=== PATIENT | male | born 2000 | race Two or more races ===

== ENCOUNTER → 2024-11-12 | Outpatient (CLI) | payer MEDICARE, MEDICAID, SELFPAY ==
--- NOTE | 2024-11-12 | XR_ITS ---
Examination: Abdomen AP single view Technique: AP portable supine abdomen, single view Exam date and time: November 12, 2024 1201 hours INDICATIONS: Status post left ureteral stent placement FINDINGS: Left ureteral stent satisfactory position Moderate air and stool in the colon overlies the kidneys IMPRESSION: Left ureteral stent satisfactory position
== END | disposition home or self-care (01) ==
LOC: CDIM 11:25
PROVIDERS: Referring Provider Surgery; Visit Provider Surgery
DX: N20.1 Calculus of ureter (principal); Z98.890 Other specified postprocedural states
CPT/HCPCS: 74018

== ENCOUNTER → 2024-11-20 | Outpatient (CLI) | payer MEDICARE, MEDICAID, SELFPAY ==
[2024-11-20 10:27] VITALS: BMI 16.2
--- NOTE | 2024-11-20 10:51 | SUR.PREOP ---
Pt is non verbal, delayed. unable to walk, see health history.
[2024-11-20 12:53] LABS: Basophils % (Auto) 0 % (0-2.5); Eosinophils # (Auto) 0.1 Thou/mm3 (0.0-0.5); Eosinophils % (Auto) 1 % (0-10); Hematocrit 40.1 % (41.0-53.0); Hemoglobin 12.9 g/dL (13.5-16.0); Immature Granulocytes % (Auto) 1 % (0-0); Immature Granulocytes Auto 0.08 Thou/mm3 (0.00-0.00); Lymphocytes # (Auto) 1.8 Thou/mm3 (1.0-4.8); Lymphocytes % (Auto) 11 % (10-50); Mean Corpuscular HGB Conc 32.2 g/dl (31.0-37.0); Mean Corpuscular Hemoglobin 32.3 pg (25.0-35.0); Mean Corpuscular Volume 100 fL (80-100); Monocytes # (Auto) 1.1 Thou/mm3 (0.0-0.8); Monocytes % (Auto) 7 % (0-12); Neutrophils # (Auto) 13.2 Thou/mm3 (1.8-7.7); Neutrophils % (Auto) 81 % (37-80); Nucleated Red Blood Cell % 0 /100 WBC (0); Platelet Count 345 Thou/mm3 (140-440); RDW Standard Deviation 53.2 fL (35.1-43.9); White Blood Count 16.4 Thou/mm3 (3.8-10.6)
[2024-11-20 13:08] LABS: Anion Gap 15 (7-16); BUN/Creatinine Ratio 20 Ratio (12-20); Blood Urea Nitrogen 26 mg/dL (9-23); Calcium 10.4 mg/dL (8.3-10.6); Chloride 112 mMol/L (98-107); Creatinine (Component) 1.3 mg/dL (0.6-1.3); Estimated Creatinine Clearance 66.3 mL/min (>60); Glucose 93 mg/dL (74-106); Osmolality,Calculated 308 (275-295); Potassium 4.2 mMol/L (3.4-5.1); Sodium 153 mMol/L (136-145); eGFR > 60 See Note
--- NOTE | 2024-11-21 09:38 | SUR.PREOP ---
WBC 16.4, Dr Anne notified, order Cipro 500 po bid, Rx was called pt's pharmacy, pt's mother was called and updated with the labs and new Rx.
--- NOTE | 2024-11-24 12:47 | SUR.PREOP ---
history and labs reviewed with Dr Lopez. No new orders.
--- NOTE | 2024-11-24 14:23 | SUR.PREOP ---
Called pt's mother to confirm time, mother stated pt is inpatient at hospital in [place].
--- NOTE | 2024-11-25 09:08 | ESHP_ITS ---
RE: DEIDRA HUGHES : 2000 DATE OF ADMISSION: 11/24/2024 HISTORY OF PRESENT ILLNESS: The patient is a 24-year-old gentleman with a left ureteral stent. The patient is in a wheelchair. He had a laser lithotripsy done in [facility] and a left ureteral stent placed and had a left kidney stone. The patient is not able to talk or walk. He had a history of epilepsy and developmental disability. He had a history of stones in the past. Previous surgery of appendectomy, cholecystectomy, and feet surgery. No history of diabetes mellitus. He has low blood pressure. ALLERGIES: NONE KNOWN. MEDICATIONS: He takes medication for epilepsy, , lorazepam, and Xcopri. PHYSICAL EXAMINATION: GENERAL: The patient is in a wheelchair. HEENT: Normal. NECK: Supple. CHEST: Lungs clear. CARDIOVASCULAR: Heart sounds are normal. ABDOMEN: Soft. LABORATORY DATA: The patient had a film done, which revealed left ureteral stent in place. The stone is not seen in the kidney. PLAN: Cystoscopy and removal of left ureteral stent. Plan, procedure, risks and complications have been discussed with the patient and family. They have understood them and agreed to proceed. DT: 15:30:50 TT: 17:07:00 Ref: [id number] - TID: [id number]
== END | disposition home or self-care (01) ==
LOC: SLAB 11-27 08:35
PROVIDERS: PCP Family Medicine; Referring Provider Surgery; Visit Provider Surgery
DX: N20.1 Calculus of ureter (principal)
CPT/HCPCS: 36415; 80048; 81001; 85025; 87086